=== PATIENT | female | born 1960 | race Caucasian/White ===

== ENCOUNTER 2017-01-15 16:35 | Emergency (ER) | payer OTHER ==
[2017-01-15] MEDS ORDERED: predniSONE 20 MG TAB As Ordered ONE (17:21)
[2017-01-15] MEDS ORDERED: ALBUTEROL SULFATE 2.5 MG/0.5 ML INH NEB SOLN As Ordered ONE (17:21)
[2017-01-15 17:55] LABS: BASO % 0.3 % (0.0-1.0); EOS # 0.1 K/mm3 (0.0-0.50); LARGE UNSTAINED CELL # 0.1 K/mm3 (0.0-0.4); LARGE UNSTAINED CELL % 1.8 % (0.0-4.0); LYMPH # 0.5 K/mm3 (1.5-4.5); LYMPH % 5.6 % (24.0-44.0); MEAN CORPUSCULAR HEMOGLOBIN 28.9 pg (27.0-33.0); MEAN CORPUSCULAR HGB CONC 34.1 g/dl (32.0-36.5); MEAN CORPUSCULAR VOLUME 84.6 fl (80.0-96.0); MONO # 0.5 K/mm3 (0.0-0.8); MONO % 7.5 % (0.0-5.0); NEUTROPHILS # 5.5 K/mm3 (1.8-7.7); NEUTROPHILS % 83.8 % (36.0-66.0); PLATELET COUNT, AUTOMATED 142 k/mm3 (150-450); RED CELL DISTRIBUTION WIDTH 13.4 % (11.5-14.5); WHITE BLOOD COUNT 6.6 K/mm3 (4.0-10.0)
--- NOTE | 2017-01-15 17:55 | REP ---
Clinical: Acute cough . Comparison: None . Technique: PA and lateral. Findings: The mediastinum and cardiac silhouette are normal. The lung carpio are clear and without acute consolidation, effusion, or pneumothorax. The skeletal structures are intact and normal. Impression: 1. No acute cardiopulmonary process. Signed by Jorge Slaughter MD 01/15/2017 05:47 P
[2017-01-15 18:31] LABS: ANION GAP 9 MEQ/L (8-16); BLOOD UREA NITROGEN 10 MG/DL (7-18); CALCIUM LEVEL 8.8 MG/DL (8.5-10.1); CARBON DIOXIDE LEVEL 24 MEQ/L (21-32); CHLORIDE LEVEL 105 MEQ/L (98-107); CREATININE FOR GFR 0.67 MG/DL (0.55-1.02); GLOMERULAR FILTRATION RATE > 60.0 (>51); GLUCOSE, FASTING 99 MG/DL (70-105); POTASSIUM SERUM 4.2 MEQ/L (3.5-5.1); SODIUM LEVEL 138 MEQ/L (136-145)
--- NOTE | 2017-01-15 18:55 | EDDOCDS ---
Physician Documentation [facility] Name: Saba Lynn Age: 56 yrs Sex: Female : 1960 Arrival Date: 01/15/2017 Time: 16:35 Bed I3 / M3 Private MD: Castillo Duque W. Disposition: 01/15/17 18:46 Discharged to Home/Self Care. Impression: Acute bronchitis, Asthma. - Condition is Stable. - Discharge Instructions: Acute Bronchitis, Asthma, Adult. - Prescriptions for Doxycycline Hyclate 100 mg Oral Tablet - take 1 tablet by ORAL route every 12 hours; 20 tablet. Prednisone 20 mg Oral Tablet - take 2 tablet by ORAL route once daily for 5 days; 10 tablet. - Medication Reconciliation, Local Pharmacy Hours form. - Follow up: Castillo Duque; When: 2 - 3 days; Reason: Recheck today's complaints, Continuance of care. - Problem is new. - Symptoms have improved. - Notes: USE MEDICATION INSTRUCTED, CONTINUE WITH YOUR NEBULIZERS AT HOME, FOLLOW UP WITH YOUR DOCTOR NEXT WEEK, RETURN TO THE ER IF THE SYMPTOMS WORSEN OR BECOME CONCERNING Historical: - Allergies: PENICILLINS; - Home Meds: 1. Tecfidera 240 mg oral cpDR 2 times per day 2. atorvastatin 10 mg oral tab once daily 3. albuterol sulfate 90 mcg/actuation Inhl aepb 4. ipratropium-albuterol 0.5 mg-3 mg(2.5 mg base)/3 mL Inhl nebu prn - PMHx: Multiple Sclerosis; Hypercholesterolemia; Asthma; - PSHx: D & C; Sinus Surgery; - Social history: Smoking status: Patient states was never smoker of tobacco. No barriers to communication noted, The patient speaks fluent Ugandan, Speaks appropriately for age. - Family history: Not pertinent. - : The pt / caregiver states he / she is not on anticoagulants. Home medication list is obtained from the patient. - Exposure Risk Screening:: None identified. 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 3 in. (160.02 cm); Pain 0/10; 18:54 BP 113 / 61; Pulse 96; Resp 18; Temp 100.4(O); Pulse Ox 96% on R/A; Pain 0/10; kc3 16:37 Body Mass Index 26.93 (68.95 kg, 160.02 cm) dem1 18:54 Provider aware of temp at discharge. kc3 MDM: 17:15 IV Saline Lock ordered. ck7 17:15 predniSONE 40 mg PO once; administer with food or milk ordered. ck7 17:15 Albuterol 2.5 mg Nebulizer once ordered. ck7 17:15 Call Respiratory ordered. ck7 17:15 Obtain sample by nasopharyngeal swab ordered. ck7 17:16 CBC with Diff Ordered. EDMS 17:16 MED Profile Ordered. EDMS 17:16 Call Respiratory complete. srm 17:16 -Influenza A&B Rapid Antigen - Nose Ordered. EDMS 17:16 Chest, 2 View (pa\E\lat) Ordered. EDMS 17:52 Financial registration complete. kf3 18:04 CBC with Diff Reviewed. ck7 18:04 Chest, 2 View (pa\E\lat) Reviewed. ck7 18:07 -Influenza A&B Rapid Antigen - Nose Reviewed. ck7 18:26 [facility] Payment Agreement was scanned into [facility] and attached to record. kf3 18:42 MED Profile Reviewed. ck7 Administered Medications: 17:24 Drug: Albuterol 2.5 mg [albuterol sulfate 2.5 mg/0.5 mL solution for nebulization (0.5 js mL)] Route: Nebulizer; 17:36 Drug: predniSONE 40 mg [prednisone 20 mg tablet (2 tabs)] Route: PO; kc3 Signatures: Dispatcher [employer] EDMS Naomy Zavaleta RN RN srm Fiddler, Benedict, Reg Reg kf3 John Bhatt RPA-C RPA-Cck7 Jazmín Munoz RN RN kc3 Ken Ascencio The chart was reviewed and I authenticate all verbal orders and agree with the evaluation and treatment provided.Attachments: 18:26 [facility] Payment Agreement kf3 MTDD
--- NOTE | 2017-01-15 18:56 | EDDOCDS ---
Nurse's Notes [facility] Name: Saba Lynn Age: 56 yrs Sex: Female : 1960 Arrival Date: 01/15/2017 Time: 16:35 Bed I3 / M3 Private MD: Castillo Duque W. Diagnosis: Acute bronchitis;Asthma Presentation: 01/15 16:38 Presenting complaint: Patient states: i have a chronic cough. dx with URI 2 weeks ago srm and placed on z pack. saw PMD and not given anything. Adult Sepsis Screening: The patient does not have new or worsening altered mentation. Patient's respiratory rate is less than 22. Systolic blood pressure is greater than 100. Patient has a qSOFA score of 0- Negative Sepsis Screen. Suicide/Homicide risk assessment- the patient denies having any suicidal and/or homicidal ideations and does not present with any other emotional, behavioral or mental health complaints. Status: Patient is not a director of cardiopulmonary services or dependent. Transition of care: patient was not received from another setting of care. 16:38 Acuity: JIE Level 4 srm 16:38 Method Of Arrival: Walkin/Carried/Asstd srm Triage Assessment: 16:40 General: Appears in no apparent distress, Behavior is appropriate for age, cooperative. srm Pain: Pain currently is 8 out of 10 on a pain scale. HIV screening NA for this visit Offered previously. 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 Tecfidera 240 mg oral cpDR 2 times per day 2. atorvastatin 10 mg oral tab once daily 3. albuterol sulfate 90 mcg/actuation Inhl aepb 4. ipratropium-albuterol 0.5 mg-3 mg(2.5 mg base)/3 mL Inhl nebu prn - PMHx: Multiple Sclerosis; Hypercholesterolemia; Asthma; - PSHx: D & C; Sinus Surgery; - Social history: Smoking status: Patient states was never smoker of tobacco. No barriers to communication noted, The patient speaks fluent Macedonian, Speaks appropriately for age. - Family history: Not pertinent. - : The pt / caregiver states he / she is not on anticoagulants. Home medication list is obtained from the patient. - Exposure Risk Screening:: None identified. Screenin:37 Screening information is obtained from the patient. Fall risk: No risks identified. kc3 Assistance ADL's: requires no assistance with activities of daily living. Abuse/DV Screen: The patient / caregiver reports he/she is: not in a situation that causes fear, pain or injury. Nutritional screening: No deficits noted. home support is adequate. 18:06 Advance Directives: Currently, there is no health care proxy. kc3 Assessment: 17:37 General: Appears in no apparent distress, comfortable, Behavior is appropriate for age, kc3 cooperative. Neurological: No deficits noted. Respiratory: Respiratory effort is even, unlabored, Reports cough that is non-productive. Derm: Skin is pink, warm & dry. 18:53 General: Appears in no apparent distress, comfortable, Behavior is appropriate for age, kc3 cooperative. Neurological: No deficits noted. Respiratory: Respiratory effort is even, unlabored. Derm: Skin is pink, warm & dry. Vital Signs: 16:37 BP 126 / 63; Pulse 90; Resp 18; Temp 98.3(T); Pulse Ox 97% on R/A; Weight 68.95 kg; dem1 Height 5 ft. 3 in. (160.02 cm); Pain 0/10; 18:54 BP 113 / 61; Pulse 96; Resp 18; Temp 100.4(O); Pulse Ox 96% on R/A; Pain 0/10; kc3 16:37 Body Mass Index 26.93 (68.95 kg, 160.02 cm) dem1 18:54 Provider aware of temp at discharge. kc3 Vitals: 16:37 Log In Time: January 15, 2017 at 16:34. [facility] ED Course: 16:35 Patient visited by Jesenia Baeza. dem1 16:35 Patient moved to Waiting dem1 16:37 Castillo Duque is Private Physician. dem1 16:38 Patient moved to Pre RCE dem1 16:38 Triage Initiated srm 16:40 Patient moved to Triage 1 srm 17:04 [facility] ck7 17:04 Vin Fuentes MD is Attending Physician. ck7 17:04 Patient visited by John Bhatt RPA-C. ck7 17:16 Patient moved to I3 / M3 srm 17:35 Patient visited by John Bhatt RPA-C. ck7 17:36 MED Profile Sent. kc3 17:36 CBC with Diff Sent. kc3 17:37 The patient / caregiver is instructed regarding the plan of care and ED course. kc3 17:37 -Influenza A&B Rapid Antigen - Nose Sent. kc3 18:00 Chest, 2 View (pa\E\lat) Returned. EDMS 18:06 Patient visited by Jazmín Munoz RN. kc3 18:06 Inserted saline lock: 20 gauge in left antecubital area and blood collected. The kc3 patient tolerated the procedure well. 18:26 [facility] Payment Agreement was scanned into [employer] and attached to record. kf3 18:45 Castillo Duque is Referral Physician. ck7 18:47 Patient visited by Jazmín Munoz RN. kc3 18:55 Discontinued IV lock intact, bleeding controlled, pressure dressing applied, No kc3 redness/swelling at site. No procedures done that require assistance. Administered Medications: 17:24 Drug: Albuterol 2.5 mg [albuterol sulfate 2.5 mg/0.5 mL solution for nebulization (0.5 js mL)] Route: Nebulizer; 17:36 Drug: predniSONE 40 mg [prednisone 20 mg tablet (2 tabs)] Route: PO; [facility] RT: 17:24 Initial Med Neb Given as ordered Patient was instructed and evaluated on procedure js Patient tolerated procedure well without adverse effect. Respiratory: Breath sounds are diminished bilaterally. Order Results: Lab Order: CBC with Diff; SPEC'M 01/15/17 17:27 Test: WHITE BLOOD COUNT; Value: 6.6; Range: 4.0-10.0; Units: K/mm3; Status: F Test: RED BLOOD COUNT; Value: 4.59; Range: 4.00-5.40; Units: M/mm3; Status: F Test: HEMOGLOBIN; Value: 13.3; Range: 12.0-16.0; Units: g/dl; Status: F Test: HEMATOCRIT; Value: 38.8; Range: 36.0-47.0; Units: %; Status: F Test: MEAN CORPUSCULAR VOLUME; Value: 84.6; Range: 80.0-96.0; Units: fl; Status: F Test: MEAN CORPUSCULAR HEMOGLOBIN; Value: 28.9; Range: 27.0-33.0; Units: pg; Status: F Test: MEAN CORPUSCULAR HGB CONC; Value: 34.1; Range: 32.0-36.5; Units: g/dl; Status: F Test: RED CELL DISTRIBUTION WIDTH; Value: 13.4; Range: 11.5-14.5; Units: %; Status: F Test: PLATELET COUNT, AUTOMATED; Value: 142; Range: 150-450; Abnormal: Below low normal; Units: k/mm3; Status: F Test: NEUTROPHILS %; Value: 83.8; Range: 36.0-66.0; Abnormal: Above high normal; Units: %; Status: F Test: LYMPH %; Value: 5.6; Range: 24.0-44.0; Abnormal: Below low normal; Units: %; Status: F Test: MONO %; Value: 7.5; Range: 0.0-5.0; Abnormal: Above high normal; Units: %; Status: F Test: EOS %; Value: 1.0; Range: 0.0-3.0; Units: %; Status: F Test: BASO %; Value: 0.3; Range: 0.0-1.0; Units: %; Status: F Test: LARGE UNSTAINED CELL %; Value: 1.8; Range: 0.0-4.0; Units: %; Status: F Test: NEUTROPHILS #; Value: 5.5; Range: 1.8-7.7; Units: K/mm3; Status: F Test: LYMPH #; Value: 0.5; Range: 1.5-4.5; Abnormal: Below low normal; Units: K/mm3; Status: F Test: MONO #; Value: 0.5; Range: 0.0-0.8; Units: K/mm3; Status: F Test: EOS #; Value: 0.1; Range: 0.0-0.50; Units: K/mm3; Status: F Test: BASO #; Value: 0.0; Range: 0.0-0.2; Units: K/mm3; Status: F Test: LARGE UNSTAINED CELL #; Value: 0.1; Range: 0.0-0.4; Units: K/mm3; Status: F Lab Order: MED Profile; SPEC'M 01/15/17 18:00 Test: GLUCOSE, FASTING; Value: 99; Range: 70-105; Units: MG/DL; Status: F Test: BLOOD UREA NITROGEN; Value: 10; Range: 7-18; Units: MG/DL; Status: F Test: CREATININE FOR GFR; Value: 0.67; Range: 0.55-1.02; Units: MG/DL; Status: F Test: GLOMERULAR FILTRATION RATE; Value: > 60.0; Range: >51; Status: F Test: SODIUM LEVEL; Value: 138; Range: 136-145; Units: MEQ/L; Status: F Test: POTASSIUM SERUM; Value: 4.2; Range: 3.5-5.1; Units: MEQ/L; Status: F Test: CHLORIDE LEVEL; Value: 105; Range: 98-107; Units: MEQ/L; Status: F Test: CARBON DIOXIDE LEVEL; Value: 24; Range: 21-32; Units: MEQ/L; Status: F Test: ANION GAP; Value: 9; Range: 8-16; Units: MEQ/L; Status: F Test: CALCIUM LEVEL; Value: 8.8; Range: 8.5-10.1; Units: MG/DL; Status: F Test Note: ; Units are mL/min/1.73 m2 Chronic Kidney Disease Staging per NKF: Stage I & II GFR >=60 Normal to Mildly Decreased Stage III GFR 30-59 Moderately Decreased Stage IV GFR 15-29 Severely Decreased Stage V GFR <15 Very Little GFR Left ESRD GFR <15 on CUFF MATCHER Lab Order: -Influenza A&B Rapid Antigen - Nose; SPEC'M 01/15/17 17:27 Test: INFLUENZA A RAPID SCR by ICA; Value: INFLUENZA A RESULTS NEGATIVE; Status: F Test: INFLUENZA A RAPID SCR by ICA; Value: Comments:; Status: F Test: INFLUENZA B RAPID SCR by ICA; Value: INFLUENZA B RESULTS NEGATIVE; Status: F Test Note: ; The Influenza test is a direct rapid immunoassay for the qualitative detection of Influenza viral antigen. Cell culture (Viral Culture) testing should be considered to confirm NEGATIVE results and to assist in detecting other viruses that can provide similar clinical symptoms. Please contact the lab within 24 hours ([phone]) if confirmatory testing is desired. Radiology Order: Chest, 2 View (pa\E\lat) Test: Chest, 2 View (pa\E\lat) REASON FOR EXAMINATION: Cough; Clinical: Acute cough .; ; Comparison: None .; ; Technique: PA and lateral.; ; Findings:; The mediastinum and cardiac silhouette are normal. The lung carpio are clear and; without acute consolidation, effusion, or pneumothorax. The skeletal structures; are intact and normal.; ; Impression:; 1. No acute cardiopulmonary process.; ; ; Signed by; Jorge Slaughter MD 01/15/2017 05:47 P; Outcome: 18:46 Discharge ordered by Provider. ck7 18:54 Discharge Assessment: Patient awake, alert and oriented x 3. No cognitive and/or kc3 functional deficits noted. Patient verbalized understanding of disposition instructions. patient administered narcotics - no. The following High Risk Discharge criteria are identified: None. Discharged to home ambulatory. Condition: stable. Discharge instructions given to patient, Instructed on discharge instructions, follow up and referral plans. medication usage, Demonstrated understanding of instructions, medications, Pt was receptive of discharge instructions/ teaching. Prescriptions given X 2. No special radiology studies were completed. Property :Personal belongings accompany Pt. 18:55 Patient left the ED. kc3 Signatures: Dispatcher [employer] EDMS Naomy Zavaleta, RN RN Ken Ruiz Kris, Reg Reg kf3 Jesenia Baeza Christopher, RPA-C RPA-Cck7 Jazmín Munoz,RN RN kc3 MTDD
--- NOTE | 2017-01-17 19:55 | EDDOCDS ---
Physician Documentation [facility] Name: Saba Lynn Age: 56 yrs Sex: Female : 1960 Arrival Date: 01/15/2017 Time: 16:35 Bed I3 / M3 Private MD: Castillo Duque W. Disposition: 01/15/17 18:46 Discharged to Home/Self Care. Impression: Acute bronchitis, Asthma. - Condition is Stable. - Discharge Instructions: Acute Bronchitis, Asthma, Adult. - Prescriptions for Doxycycline Hyclate 100 mg Oral Tablet - take 1 tablet by ORAL route every 12 hours; 20 tablet. Prednisone 20 mg Oral Tablet - take 2 tablet by ORAL route once daily for 5 days; 10 tablet. - Medication Reconciliation, Local Pharmacy Hours form. - Follow up: Castillo Duque; When: 2 - 3 days; Reason: Recheck today's complaints, Continuance of care. - Problem is new. - Symptoms have improved. - Notes: USE MEDICATION INSTRUCTED, CONTINUE WITH YOUR NEBULIZERS AT HOME, FOLLOW UP WITH YOUR DOCTOR NEXT WEEK, RETURN TO THE ER IF THE SYMPTOMS WORSEN OR BECOME CONCERNING Historical: - Allergies: PENICILLINS; - Home Meds: 1. Tecfidera 240 mg oral cpDR 2 times per day 2. atorvastatin 10 mg oral tab once daily 3. albuterol sulfate 90 mcg/actuation Inhl aepb 4. ipratropium-albuterol 0.5 mg-3 mg(2.5 mg base)/3 mL Inhl nebu prn - PMHx: Multiple Sclerosis; Hypercholesterolemia; Asthma; - PSHx: D & C; Sinus Surgery; - Social history: Smoking status: Patient states was never smoker of tobacco. No barriers to communication noted, The patient speaks fluent Thai, Speaks appropriately for age. - Family history: Not pertinent. - : The pt / caregiver states he / she is not on anticoagulants. Home medication list is obtained from the patient. - Exposure Risk Screening:: None identified. 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 3 in. (160.02 cm); Pain 0/10; 18:54 BP 113 / 61; Pulse 96; Resp 18; Temp 100.4(O); Pulse Ox 96% on R/A; Pain 0/10; kc3 16:37 Body Mass Index 26.93 (68.95 kg, 160.02 cm) dem1 18:54 Provider aware of temp at discharge. kc3 MDM: 17:15 IV Saline Lock ordered. ck7 17:15 predniSONE 40 mg PO once; administer with food or milk ordered. ck7 17:15 Albuterol 2.5 mg Nebulizer once ordered. ck7 17:15 Call Respiratory ordered. ck7 17:15 Obtain sample by nasopharyngeal swab ordered. ck7 17:16 CBC with Diff Ordered. EDMS 17:16 MED Profile Ordered. EDMS 17:16 Call Respiratory complete. srm 17:16 -Influenza A&B Rapid Antigen - Nose Ordered. EDMS 17:16 Chest, 2 View (pa\E\lat) Ordered. EDMS 17:52 Financial registration complete. kf3 18:04 CBC with Diff Reviewed. ck7 18:04 Chest, 2 View (pa\E\lat) Reviewed. ck7 18:07 -Influenza A&B Rapid Antigen - Nose Reviewed. ck7 18:26 [facility] Payment Agreement was scanned into [employer] and attached to record. kf3 18:42 MED Profile Reviewed. ck7 20:48 T-Sheet-- Draft Copy was scanned into [employer] and attached to record. klr Administered Medications: 17:24 Drug: Albuterol 2.5 mg [albuterol sulfate 2.5 mg/0.5 mL solution for nebulization (0.5 js mL)] Route: Nebulizer; 17:36 Drug: predniSONE 40 mg [prednisone 20 mg tablet (2 tabs)] Route: PO; kc3 Signatures: Dispatcher [employer] EDMS Naomy Zavaleta RN RN srm Fidkevynr, Benedict, Reg Reg kf3 John Bhatt RPA-C RPA-Cck7 Jazmín Munoz RN RN kc3 Jane Oakley James js The chart was reviewed and I authenticate all verbal orders and agree with the evaluation and treatment provided.Attachments: 18:26 [facility] Payment Agreement kf3 20:48 T-Sheet-- Draft Copy klr Chart Complete MTDD
--- NOTE | 2017-01-17 19:55 | EDDOCDS ---
Nurse's Notes [facility] Name: Saba Lynn Age: 56 yrs Sex: Female : 1960 Arrival Date: 01/15/2017 Time: 16:35 Bed I3 / M3 Private MD: Castillo Duque W. Diagnosis: Acute bronchitis;Asthma Presentation: 01/15 16:38 Presenting complaint: Patient states: i have a chronic cough. dx with URI 2 weeks ago srm and placed on z pack. saw PMD and not given anything. Adult Sepsis Screening: The patient does not have new or worsening altered mentation. Patient's respiratory rate is less than 22. Systolic blood pressure is greater than 100. Patient has a qSOFA score of 0- Negative Sepsis Screen. Suicide/Homicide risk assessment- the patient denies having any suicidal and/or homicidal ideations and does not present with any other emotional, behavioral or mental health complaints. Status: Patient is not a director of child welfare services or dependent. Transition of care: patient was not received from another setting of care. 16:38 Acuity: JIE Level 4 srm 16:38 Method Of Arrival: Walkin/Carried/Asstd srm Triage Assessment: 16:40 General: Appears in no apparent distress, Behavior is appropriate for age, cooperative. srm Pain: Pain currently is 8 out of 10 on a pain scale. HIV screening NA for this visit Offered previously. 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 Tecfidera 240 mg oral cpDR 2 times per day 2. atorvastatin 10 mg oral tab once daily 3. albuterol sulfate 90 mcg/actuation Inhl aepb 4. ipratropium-albuterol 0.5 mg-3 mg(2.5 mg base)/3 mL Inhl nebu prn - PMHx: Multiple Sclerosis; Hypercholesterolemia; Asthma; - PSHx: D & C; Sinus Surgery; - Social history: Smoking status: Patient states was never smoker of tobacco. No barriers to communication noted, The patient speaks fluent Bulgarian, Speaks appropriately for age. - Family history: Not pertinent. - : The pt / caregiver states he / she is not on anticoagulants. Home medication list is obtained from the patient. - Exposure Risk Screening:: None identified. Screenin:37 Screening information is obtained from the patient. Fall risk: No risks identified. kc3 Assistance ADL's: requires no assistance with activities of daily living. Abuse/DV Screen: The patient / caregiver reports he/she is: not in a situation that causes fear, pain or injury. Nutritional screening: No deficits noted. home support is adequate. 18:06 Advance Directives: Currently, there is no health care proxy. kc3 Assessment: 17:37 General: Appears in no apparent distress, comfortable, Behavior is appropriate for age, kc3 cooperative. Neurological: No deficits noted. Respiratory: Respiratory effort is even, unlabored, Reports cough that is non-productive. Derm: Skin is pink, warm & dry. 18:53 General: Appears in no apparent distress, comfortable, Behavior is appropriate for age, kc3 cooperative. Neurological: No deficits noted. Respiratory: Respiratory effort is even, unlabored. Derm: Skin is pink, warm & dry. Vital Signs: 16:37 BP 126 / 63; Pulse 90; Resp 18; Temp 98.3(T); Pulse Ox 97% on R/A; Weight 68.95 kg; dem1 Height 5 ft. 3 in. (160.02 cm); Pain 0/10; 18:54 BP 113 / 61; Pulse 96; Resp 18; Temp 100.4(O); Pulse Ox 96% on R/A; Pain 0/10; kc3 16:37 Body Mass Index 26.93 (68.95 kg, 160.02 cm) dem1 18:54 Provider aware of temp at discharge. kc3 Vitals: 16:37 Log In Time: January 15, 2017 at 16:34. [facility] ED Course: 16:35 Patient visited by Jesenia Bazea. dem1 16:35 Patient moved to Waiting dem1 16:37 Castillo Duque is Private Physician. dem1 16:38 Patient moved to Pre RCE dem1 16:38 Triage Initiated srm 16:40 Patient moved to Triage 1 srm 17:04 [facility] ck7 17:04 Vin Fuentes MD is Attending Physician. ck7 17:04 Patient visited by John Bhatt RPA-C. ck7 17:16 Patient moved to I3 / M3 srm 17:35 Patient visited by John Bhatt RPA-C. ck7 17:36 MED Profile Sent. kc3 17:36 CBC with Diff Sent. kc3 17:37 The patient / caregiver is instructed regarding the plan of care and ED course. kc3 17:37 -Influenza A&B Rapid Antigen - Nose Sent. kc3 18:00 Chest, 2 View (pa\E\lat) Returned. EDMS 18:06 Patient visited by Jazmín Munoz RN. kc3 18:06 Inserted saline lock: 20 gauge in left antecubital area and blood collected. The kc3 patient tolerated the procedure well. 18:26 [facility] Payment Agreement was scanned into [employer] and attached to record. kf3 18:45 Castillo Duque is Referral Physician. ck7 18:47 Patient visited by Jazmín Munoz RN. kc3 18:55 Discontinued IV lock intact, bleeding controlled, pressure dressing applied, No kc3 redness/swelling at site. No procedures done that require assistance. 20:48 T-Sheet-- Draft Copy was scanned into [employer] and attached to record. klr Administered Medications: 17:24 Drug: Albuterol 2.5 mg [albuterol sulfate 2.5 mg/0.5 mL solution for nebulization (0.5 js mL)] Route: Nebulizer; 17:36 Drug: predniSONE 40 mg [prednisone 20 mg tablet (2 tabs)] Route: PO; kc3 RT: 17:24 Initial Med Neb Given as ordered Patient was instructed and evaluated on procedure js Patient tolerated procedure well without adverse effect. Respiratory: Breath sounds are diminished bilaterally. Order Results: Lab Order: CBC with Diff; SPEC'M 01/15/17 17:27 Test: WHITE BLOOD COUNT; Value: 6.6; Range: 4.0-10.0; Units: K/mm3; Status: F Test: RED BLOOD COUNT; Value: 4.59; Range: 4.00-5.40; Units: M/mm3; Status: F Test: HEMOGLOBIN; Value: 13.3; Range: 12.0-16.0; Units: g/dl; Status: F Test: HEMATOCRIT; Value: 38.8; Range: 36.0-47.0; Units: %; Status: F Test: MEAN CORPUSCULAR VOLUME; Value: 84.6; Range: 80.0-96.0; Units: fl; Status: F Test: MEAN CORPUSCULAR HEMOGLOBIN; Value: 28.9; Range: 27.0-33.0; Units: pg; Status: F Test: MEAN CORPUSCULAR HGB CONC; Value: 34.1; Range: 32.0-36.5; Units: g/dl; Status: F Test: RED CELL DISTRIBUTION WIDTH; Value: 13.4; Range: 11.5-14.5; Units: %; Status: F Test: PLATELET COUNT, AUTOMATED; Value: 142; Range: 150-450; Abnormal: Below low normal; Units: k/mm3; Status: F Test: NEUTROPHILS %; Value: 83.8; Range: 36.0-66.0; Abnormal: Above high normal; Units: %; Status: F Test: LYMPH %; Value: 5.6; Range: 24.0-44.0; Abnormal: Below low normal; Units: %; Status: F Test: MONO %; Value: 7.5; Range: 0.0-5.0; Abnormal: Above high normal; Units: %; Status: F Test: EOS %; Value: 1.0; Range: 0.0-3.0; Units: %; Status: F Test: BASO %; Value: 0.3; Range: 0.0-1.0; Units: %; Status: F Test: LARGE UNSTAINED CELL %; Value: 1.8; Range: 0.0-4.0; Units: %; Status: F Test: NEUTROPHILS #; Value: 5.5; Range: 1.8-7.7; Units: K/mm3; Status: F Test: LYMPH #; Value: 0.5; Range: 1.5-4.5; Abnormal: Below low normal; Units: K/mm3; Status: F Test: MONO #; Value: 0.5; Range: 0.0-0.8; Units: K/mm3; Status: F Test: EOS #; Value: 0.1; Range: 0.0-0.50; Units: K/mm3; Status: F Test: BASO #; Value: 0.0; Range: 0.0-0.2; Units: K/mm3; Status: F Test: LARGE UNSTAINED CELL #; Value: 0.1; Range: 0.0-0.4; Units: K/mm3; Status: F Lab Order: MED Profile; SPEC'M 01/15/17 18:00 Test: GLUCOSE, FASTING; Value: 99; Range: 70-105; Units: MG/DL; Status: F Test: BLOOD UREA NITROGEN; Value: 10; Range: 7-18; Units: MG/DL; Status: F Test: CREATININE FOR GFR; Value: 0.67; Range: 0.55-1.02; Units: MG/DL; Status: F Test: GLOMERULAR FILTRATION RATE; Value: > 60.0; Range: >51; Status: F Test: SODIUM LEVEL; Value: 138; Range: 136-145; Units: MEQ/L; Status: F Test: POTASSIUM SERUM; Value: 4.2; Range: 3.5-5.1; Units: MEQ/L; Status: F Test: CHLORIDE LEVEL; Value: 105; Range: 98-107; Units: MEQ/L; Status: F Test: CARBON DIOXIDE LEVEL; Value: 24; Range: 21-32; Units: MEQ/L; Status: F Test: ANION GAP; Value: 9; Range: 8-16; Units: MEQ/L; Status: F Test: CALCIUM LEVEL; Value: 8.8; Range: 8.5-10.1; Units: MG/DL; Status: F Test Note: ; Units are mL/min/1.73 m2 Chronic Kidney Disease Staging per NKF: Stage I & II GFR >=60 Normal to Mildly Decreased Stage III GFR 30-59 Moderately Decreased Stage IV GFR 15-29 Severely Decreased Stage V GFR <15 Very Little GFR Left ESRD GFR <15 on [employer]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 Cell culture (Viral Culture) testing should be considered to confirm NEGATIVE results and to assist in detecting other viruses that can provide similar clinical symptoms. Please contact the lab within 24 hours ([phone]) if confirmatory testing is desired. Radiology Order: Chest, 2 View (pa\E\lat) Test: Chest, 2 View (pa\E\lat) REASON FOR EXAMINATION: Cough; Clinical: Acute cough .; ; Comparison: None .; ; Technique: PA and lateral.; ; Findings:; The mediastinum and cardiac silhouette are normal. The lung carpio are clear and; without acute consolidation, effusion, or pneumothorax. The skeletal structures; are intact and normal.; ; Impression:; 1. No acute cardiopulmonary process.; ; ; Signed by; Jorge Slaughter MD 01/15/2017 05:47 P; Outcome: 18:46 Discharge ordered by Provider. ck7 18:54 Discharge Assessment: Patient awake, alert and oriented x 3. No cognitive and/or kc3 functional deficits noted. Patient verbalized understanding of disposition instructions. patient administered narcotics - no. The following High Risk Discharge criteria are identified: None. Discharged to home ambulatory. Condition: stable. Discharge instructions given to patient, Instructed on discharge instructions, follow up and referral plans. medication usage, Demonstrated understanding of instructions, medications, Pt was receptive of discharge instructions/ teaching. Prescriptions given X 2. No special radiology studies were completed. Property :Personal belongings accompany Pt. 18:55 Patient left the ED. kc3 Signatures: Dispatcher [employer] EDMS Naomy Zavaleta, RN RN Ken Ruiz Kris, Reg Reg kf3 Jesenia Baeza dem1 John Bhatt, LYLA-C RPA-Cck7 Jazmín Munoz RN RN kc3 Jane Oakley Chart Complete MTDD
--- NOTE | 2017-01-17 19:55 | EDDOCDS ---
Physician Documentation [facility] Name: Saba Lynn Age: 56 yrs Sex: Female : 1960 Arrival Date: 01/15/2017 Time: 16:35 Bed I3 / M3 Private MD: Castillo Duque W. Disposition: 01/15/17 18:46 Discharged to Home/Self Care. Impression: Acute bronchitis, Asthma. - Condition is Stable. - Discharge Instructions: Acute Bronchitis, Asthma, Adult. - Prescriptions for Doxycycline Hyclate 100 mg Oral Tablet - take 1 tablet by ORAL route every 12 hours; 20 tablet. Prednisone 20 mg Oral Tablet - take 2 tablet by ORAL route once daily for 5 days; 10 tablet. - Medication Reconciliation, Local Pharmacy Hours form. - Follow up: Castillo Duque; When: 2 - 3 days; Reason: Recheck today's complaints, Continuance of care. - Problem is new. - Symptoms have improved. - Notes: USE MEDICATION INSTRUCTED, CONTINUE WITH YOUR NEBULIZERS AT HOME, FOLLOW UP WITH YOUR DOCTOR NEXT WEEK, RETURN TO THE ER IF THE SYMPTOMS WORSEN OR BECOME CONCERNING Historical: - Allergies: PENICILLINS; - Home Meds: 1. Tecfidera 240 mg oral cpDR 2 times per day 2. atorvastatin 10 mg oral tab once daily 3. albuterol sulfate 90 mcg/actuation Inhl aepb 4. ipratropium-albuterol 0.5 mg-3 mg(2.5 mg base)/3 mL Inhl nebu prn - PMHx: Multiple Sclerosis; Hypercholesterolemia; Asthma; - PSHx: D & C; Sinus Surgery; - Social history: Smoking status: Patient states was never smoker of tobacco. No barriers to communication noted, The patient speaks fluent Malaysian, Speaks appropriately for age. - Family history: Not pertinent. - : The pt / caregiver states he / she is not on anticoagulants. Home medication list is obtained from the patient. - Exposure Risk Screening:: None identified. 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 3 in. (160.02 cm); Pain 0/10; 18:54 BP 113 / 61; Pulse 96; Resp 18; Temp 100.4(O); Pulse Ox 96% on R/A; Pain 0/10; kc3 16:37 Body Mass Index 26.93 (68.95 kg, 160.02 cm) dem1 18:54 Provider aware of temp at discharge. kc3 MDM: 17:15 IV Saline Lock ordered. ck7 17:15 predniSONE 40 mg PO once; administer with food or milk ordered. ck7 17:15 Albuterol 2.5 mg Nebulizer once ordered. ck7 17:15 Call Respiratory ordered. ck7 17:15 Obtain sample by nasopharyngeal swab ordered. ck7 17:16 CBC with Diff Ordered. EDMS 17:16 MED Profile Ordered. EDMS 17:16 Call Respiratory complete. srm 17:16 -Influenza A&B Rapid Antigen - Nose Ordered. EDMS 17:16 Chest, 2 View (pa\E\lat) Ordered. EDMS 17:52 Financial registration complete. kf3 18:04 CBC with Diff Reviewed. ck7 18:04 Chest, 2 View (pa\E\lat) Reviewed. ck7 18:07 -Influenza A&B Rapid Antigen - Nose Reviewed. ck7 18:26 [facility] Payment Agreement was scanned into [employer] and attached to record. kf3 18:42 MED Profile Reviewed. ck7 20:48 T-Sheet-- Draft Copy was scanned into [employer] and attached to record. klr Administered Medications: 17:24 Drug: Albuterol 2.5 mg [albuterol sulfate 2.5 mg/0.5 mL solution for nebulization (0.5 js mL)] Route: Nebulizer; 17:36 Drug: predniSONE 40 mg [prednisone 20 mg tablet (2 tabs)] Route: PO; kc3 Signatures: Dispatcher [employer] EDMS Naomy Zavaleta RN RN srm Fidkevynr, Benedict, Reg Reg kf3 John Bhatt RPA-C RPA-Cck7 Jazmín Munoz RN RN kc3 Jane Oakley James js The chart was reviewed and I authenticate all verbal orders and agree with the evaluation and treatment provided.Attachments: 18:26 [facility] [place] Payment Agreement kf3 20:48 T-Sheet-- Draft Copy klr Chart Complete MTDD
== END 2017-01-15 18:55 | disposition home or self-care (01) ==
LOC: M ED 16:35
DX: J20.9 Acute bronchitis, unspecified (principal); J45.909 Unspecified asthma, uncomplicated; E78.00 Pure hypercholesterolemia, unspecified; G35 Multiple sclerosis; Z79.899 Other long term (current) drug therapy; Z88.0 Allergy status to penicillin

== ENCOUNTER → 2017-02-25 | Outpatient (REF) | payer OTHER ==
[2017-02-25 13:39] LABS: CALCIUM OXALATE CRYSTALS LARGE
== END ==
LOC: M LAB REF 13:03
PROVIDERS: ATTEND Physician Assistant
DX: R30.0 Dysuria (principal)

== ENCOUNTER → 2017-12-09 | Outpatient (CLI) | payer OTHER | LOC: M PAIN 11:15 | DX: G89.29 Other chronic pain (principal); M46.1 Sacroiliitis, not elsewhere classified; M21.372 Foot drop, left foot; G35 Multiple sclerosis; G47.30 Sleep apnea, unspecified; J45.909 Unspecified asthma, uncomplicated; Z88.0 Allergy status to penicillin; Z79.899 Other long term (current) drug therapy | CPT/HCPCS: G0463 ==

== ENCOUNTER → 2017-12-23 | Outpatient (CLI) | payer OTHER ==
[2017-12-23 17:39] LABS: BASO % 0.3 % (0.0-1.0); EOS # 0.1 10^3/uL (0.0-0.50); EOS % 2.3 % (0.0-3.0); HEMATOCRIT 37.8 % (36.0-47.0); HEMOGLOBIN 12.3 g/dl (12.0-16.0); IMMATURE GRANULOCYTE % 0.3 % (0-0); LYMPH # 0.3 10^3/uL (1.5-4.5); LYMPH % 8.4 % (24.0-44.0); MEAN CORPUSCULAR HEMOGLOBIN 27.8 pg (27.0-33.0); MEAN CORPUSCULAR HGB CONC 32.5 g/dl (32.0-36.5); MEAN CORPUSCULAR VOLUME 85.5 fl (80.0-96.0); MONO # 0.4 10^3/uL (0.0-0.8); MONO % 11.2 % (0.0-5.0); NEUTROPHILS # 2.7 10^3/uL (1.8-7.7); NEUTROPHILS % 77.5 % (36.0-66.0); PLATELET COUNT, AUTOMATED 146 10^3/uL (150-450); RED BLOOD COUNT 4.42 10^6/uL (4.00-5.40); RED CELL DISTRIBUTION WIDTH 12.8 % (11.5-14.5); WHITE BLOOD COUNT 3.5 10^3/uL (4.0-10.0)
[2017-12-23 17:42] LABS: ANION GAP 7 MEQ/L (8-16); BLOOD UREA NITROGEN 12 MG/DL (7-18); CALCIUM LEVEL 8.6 MG/DL (8.5-10.1); CARBON DIOXIDE LEVEL 26 MEQ/L (21-32); CHLORIDE LEVEL 109 MEQ/L (98-107); GLOMERULAR FILTRATION RATE > 60.0 (>51); GLUCOSE, FASTING 106 MG/DL (70-100); POTASSIUM SERUM 4.2 MEQ/L (3.5-5.1); SODIUM LEVEL 142 MEQ/L (136-145)
[2017-12-23 20:44] LABS: POSITIVE DIFF POS FLAG
== END ==
LOC: M WUC 13:57
DX: Z01.812 Encounter for preprocedural laboratory examination (principal); M72.2 Plantar fascial fibromatosis; M77.30 Calcaneal spur, unspecified foot
CPT/HCPCS: 80048

== ENCOUNTER 2017-12-29 06:24 | Day surgery (SDC) | payer OTHER ==
[2017-12-29] MEDS: LR 1,000 ML IV (06:59)
[2017-12-29] MEDS ORDERED: CLINDAMYCIN 600 MG in APPROPRIATE DILUENT 1 EA IV (07:00)
[2017-12-29] MEDS ORDERED: fentaNYL 100 MCG/2 ML INJECTION (J3010) As Ordered (07:08)
[2017-12-29] MEDS ORDERED: MIDAZOLAM INJ 2 MG/2 ML VIAL (J2250) As Ordered (07:08)
[2017-12-29] MEDS: dexameTHASONE 4 MG/ML 1ML VIAL (J1100) As Ordered (07:11)
[2017-12-29] MEDS ORDERED: PROPOFOL 200 MG/20 ML VIAL As Ordered ×3 (07:11→07:45)
[2017-12-29] MEDS: LIDOCAINE 2% MDV 20 ML VIAL As Ordered (07:40)
[2017-12-29] MEDS: BUPIVACAINE HCL 0.5% 10 ML VIAL As Ordered (07:41)
[2017-12-29] MEDS ORDERED: PHENYLephrine HCL 500 MCG/5 ML (100MCG/ML) SYRINGE (J2370) As Ordered (07:48)
[2017-12-29] MEDS ORDERED: dexameTHASONE 4 MG/ML 1ML VIAL (J1100) As Ordered (07:57)
[2017-12-29] MEDS ORDERED: ONDANSETRON 4MG/2ML VIAL (J2405) As Ordered (07:57)
[2017-12-29] MEDS ORDERED: KETOROLAC 60 MG/2 ML VIAL (J1885) As Ordered (07:57)
[2017-12-29] MEDS ORDERED: ONDANSETRON 4MG/2ML VIAL (J2405) IV (09:30)
[2017-12-29] MEDS ORDERED: PERCOCET 5MG/325MG TAB PO (09:30)
[2017-12-29] MEDS ORDERED: LR 1,000 ML IV (09:30)
== END 2017-12-29 09:45 | disposition home or self-care (01) ==
LOC: M SDC 06:24
DX: M72.2 Plantar fascial fibromatosis (principal); I10 Essential (primary) hypertension; G35 Multiple sclerosis; M12.9 Arthropathy, unspecified; M54.2 Cervicalgia; J45.909 Unspecified asthma, uncomplicated; R06.83 Snoring; G47.33 Obstructive sleep apnea (adult) (pediatric); E78.5 Hyperlipidemia, unspecified; Z88.0 Allergy status to penicillin; Z79.899 Other long term (current) drug therapy; Z78.0 Asymptomatic menopausal state; Z98.51 Tubal ligation status
CPT/HCPCS: 29893

== ENCOUNTER → 2018-01-26 | Outpatient (REF) | payer OTHER ==
[2018-01-26 13:32] LABS: BASO % 0.3 % (0.0-1.0); EOS # 0.1 10^3/uL (0.0-0.50); EOS % 3.4 % (0.0-3.0); HEMATOCRIT 38.2 % (36.0-47.0); HEMOGLOBIN 12.5 g/dl (12.0-16.0); IMMATURE GRANULOCYTE % 0.3 % (0-3.0); LYMPH # 0.3 10^3/uL (1.5-4.5); MEAN CORPUSCULAR HEMOGLOBIN 27.5 pg (27.0-33.0); MEAN CORPUSCULAR HGB CONC 32.7 g/dl (32.0-36.5); MEAN CORPUSCULAR VOLUME 84.1 fl (80.0-96.0); MONO # 0.4 10^3/uL (0.0-0.8); MONO % 12.1 % (0.0-5.0); NEUTROPHILS # 2.1 10^3/uL (1.8-7.7); NEUTROPHILS % 73.9 % (36.0-66.0); PLATELET COUNT, AUTOMATED 135 10^3/uL (150-450); RED BLOOD COUNT 4.54 10^6/uL (4.00-5.40); RED CELL DISTRIBUTION WIDTH 13.2 % (11.5-14.5); WHITE BLOOD COUNT 2.9 10^3/uL (4.0-10.0)
[2018-01-26 13:42] LABS: POSITIVE DIFF POS FLAG
[2018-01-26 14:15] LABS: ALBUMIN/GLOBULIN RATIO 1.25 (1.00-1.93); ALKALINE PHOSPHATASE 101 U/L (45-117); ALT/SGPT 30 U/L (12-78); ANION GAP 8 MEQ/L (8-16); AST/SGOT 18 U/L (7-37); BILIRUBIN,TOTAL 0.4 MG/DL (0.2-1.0); BLOOD UREA NITROGEN 14 MG/DL (7-18); CALCIUM LEVEL 8.9 MG/DL (8.5-10.1); CARBON DIOXIDE LEVEL 28 MEQ/L (21-32); CHLORIDE LEVEL 107 MEQ/L (98-107); CREATININE FOR GFR 0.72 MG/DL (0.55-1.30); GLOMERULAR FILTRATION RATE > 60.0 (>51); GLUCOSE, FASTING 96 MG/DL (70-100); POTASSIUM SERUM 3.8 MEQ/L (3.5-5.1); SODIUM LEVEL 143 MEQ/L (136-145); TOTAL PROTEIN 7.2 GM/DL (6.4-8.2)
[2018-01-26 14:18] LABS: VITAMIN B12 LEVEL 242 PG/ML
[2018-01-26 14:19] LABS: FOLATE 7.8 NG/ML
== END ==
LOC: M LABNEURO 11:09
DX: G35 Multiple sclerosis (principal)

== ENCOUNTER → 2018-05-02 | Outpatient (CLI) | payer OTHER | LOC: M RAD 11:19 | DX: M25.511 Pain in right shoulder (principal) | CPT/HCPCS: 73030 ==

== ENCOUNTER → 2018-10-19 | Outpatient (REF) | payer OTHER ==
[2018-10-19 13:31] LABS: BASO % 0.3 % (0.0-1.0); EOS # 0.1 10^3/uL (0.0-0.50); HEMATOCRIT 38.6 % (36.0-47.0); HEMOGLOBIN 12.5 g/dl (12.0-15.5); IMMATURE GRANULOCYTE % 0.3 % (0-3.0); LYMPH % 6.6 % (24.0-44.0); MEAN CORPUSCULAR HEMOGLOBIN 27.7 pg (27.0-33.0); MEAN CORPUSCULAR HGB CONC 32.4 g/dl (32.0-36.5); MEAN CORPUSCULAR VOLUME 85.6 fl (80.0-96.0); MONO # 0.3 10^3/uL (0.0-0.8); MONO % 8.3 % (0.0-5.0); NEUTROPHILS # 2.9 10^3/uL (1.8-7.7); NEUTROPHILS % 82.5 % (36.0-66.0); PLATELET COUNT, AUTOMATED 141 10^3/uL (150-450); RED BLOOD COUNT 4.51 10^6/uL (4.00-5.40); RED CELL DISTRIBUTION WIDTH 13.5 % (11.5-14.5); WHITE BLOOD COUNT 3.5 10^3/uL (4.0-10.0)
[2018-10-19 13:45] LABS: APPEARANCE, URINE CLEAR (CLEAR); BACTERIA, URINE AUTO 1+ (NEGATIVE); BILIRUBIN, URINE AUTO NEGATIVE (NEGATIVE); BLOOD, URINE BLOOD NEGATIVE (NEGATIVE); COLOR, URINE YELLOW (YELLOW); GLUCOSE, URINE (UA) AUTO NEGATIVE (NEGATIVE); KETONE, URINE AUTO NEGATIVE (NEGATIVE); LEUKOCYTE ESTERASE, URINE AUTO 1+ (NEGATIVE); MUCUS, URINE SMALL (NEGATIVE); NITRITE, URINE AUTO NEGATIVE (NEGATIVE); PROTEIN, URINE AUTO NEGATIVE (NEGATIVE); RBC, URINE AUTO 2 /HPF (0-3); SPECIFIC GRAVITY URINE AUTO 1.014 (1.002-1.035); SQUAMOUS EPITHELIAL CELL UR AU 1 /HPF (0-6); WBC, URINE AUTO 3 /HPF (0-3)
[2018-10-19 13:57] LABS: LYMPH # 0.2 10^3/uL (1.5-4.5); POSITIVE DIFF POS FLAG
[2018-10-19 14:06] LABS: ALBUMIN 4.1 GM/DL (3.2-5.2); ALBUMIN/GLOBULIN RATIO 1.46 (1.00-1.93); ALKALINE PHOSPHATASE 76 U/L (45-117); ALT/SGPT 30 U/L (12-78); ANION GAP 5 MEQ/L (8-16); AST/SGOT 15 U/L (7-37); BILIRUBIN,TOTAL 0.5 MG/DL (0.2-1.0); BLOOD UREA NITROGEN 11 MG/DL (7-18); CALCIUM LEVEL 8.8 MG/DL (8.5-10.1); CARBON DIOXIDE LEVEL 28 MEQ/L (21-32); CHLORIDE LEVEL 106 MEQ/L (98-107); CREATININE FOR GFR 0.67 MG/DL (0.55-1.30); GLOMERULAR FILTRATION RATE > 60.0 (>51); GLUCOSE, FASTING 101 MG/DL (70-100); POTASSIUM SERUM 4.3 MEQ/L (3.5-5.1); SODIUM LEVEL 139 MEQ/L (136-145); TOTAL PROTEIN 6.9 GM/DL (6.4-8.2)
[2018-10-19 14:14] LABS: FOLATE 9.3 NG/ML; VITAMIN B12 LEVEL 251 PG/ML
== END ==
LOC: M LABNEURO 11:53
DX: G35 Multiple sclerosis (principal); N39.0 Urinary tract infection, site not specified
CPT/HCPCS: 82746

== ENCOUNTER → 2019-01-02 | Outpatient (REF) | payer OTHER, MEDICAID ==
[~2019-01-02] MED LIST: HYDR-3713 PO; LEVA12INH INH; SING10TA32 PO; TECF240C PO; VENTAER INH
== END ==
LOC: M SFHCLERA 16:05
PROVIDERS: ATTEND Nurse Practitioner Family
DX: J00 Acute nasopharyngitis [common cold] (principal)

== ENCOUNTER → 2019-01-02 | Outpatient (REF) | payer OTHER, MEDICAID | LOC: M LAB REF 17:20 | PROVIDERS: ATTEND Internal Medicine Endocrinology, Diabetes & Metabolism | DX: E04.2 Nontoxic multinodular goiter (principal) ==

== ENCOUNTER → 2019-02-28 | Outpatient (REF) | payer OTHER, MEDICAID ==
[2019-02-28 13:50] LABS: BASO % 0.2 % (0.0-1.0); EOS # 0.1 10^3/uL (0.0-0.50); EOS % 1.8 % (0.0-3.0); HEMATOCRIT 42.1 % (36.0-47.0); HEMOGLOBIN 13.6 g/dl (12.0-15.5); LYMPH # 0.3 10^3/uL (1.5-4.5); LYMPH % 6.9 % (24.0-44.0); MEAN CORPUSCULAR HEMOGLOBIN 27.5 pg (27.0-33.0); MEAN CORPUSCULAR HGB CONC 32.3 g/dl (32.0-36.5); MEAN CORPUSCULAR VOLUME 85.2 fl (80.0-96.0); MONO # 0.5 10^3/uL (0.0-0.8); MONO % 11.2 % (0.0-5.0); NEUTROPHILS # 3.5 10^3/uL (1.8-7.7); NEUTROPHILS % 79.7 % (36.0-66.0); PLATELET COUNT, AUTOMATED 145 10^3/uL (150-450); RED BLOOD COUNT 4.94 10^6/uL (4.00-5.40); WHITE BLOOD COUNT 4.4 10^3/uL (4.0-10.0)
[2019-02-28 14:12] LABS: ALBUMIN 4.2 GM/DL (3.2-5.2); ALT/SGPT 71 U/L (12-78); BILIRUBIN,TOTAL 0.5 MG/DL (0.2-1.0); BLOOD UREA NITROGEN 13 MG/DL (7-18); CALCIUM LEVEL 9.2 MG/DL (8.5-10.1); CARBON DIOXIDE LEVEL 28 MEQ/L (21-32); CHLORIDE LEVEL 105 MEQ/L (98-107); CREATININE FOR GFR 0.59 MG/DL (0.55-1.30); GLOMERULAR FILTRATION RATE > 60.0 (>51); GLUCOSE, FASTING 108 MG/DL (70-100); SODIUM LEVEL 139 MEQ/L (136-145); TOTAL PROTEIN 7.1 GM/DL (6.4-8.2)
[2019-02-28 14:19] LABS: VITAMIN B12 LEVEL 597 PG/ML (247-911)
== END ==
LOC: M LABNEURO 12:53
PROVIDERS: ATTEND Psychiatry & Neurology Neurology
DX: G35 Multiple sclerosis (principal)

== ENCOUNTER → 2019-04-04 | Outpatient (CLI) | payer OTHER, MEDICAID ==
--- NOTE | 2019-04-05 02:27 | REP ---
Clinical: Abnormal pulmonary function studies with history of asthma . Comparison: 01/15/2017 . Technique: PA and lateral. Findings: The mediastinum and cardiac silhouette are normal. The lung carpio are clear and without acute consolidation, effusion, or pneumothorax. The skeletal structures are intact and normal. Impression: 1. No acute cardiopulmonary process. Electronically Signed by Jorge Slaughter MD 04/05/2019 02:18 A
== END ==
LOC: M SMT 10:14
PROVIDERS: ATTEND Nurse Practitioner Adult Health
DX: R94.2 Abnormal results of pulmonary function studies (principal); J45.40 Moderate persistent asthma, uncomplicated

== ENCOUNTER 2019-06-27 07:07 | Day surgery (SDC) | payer OTHER ==
[~2019-06-27] VITALS: Ht 160 cm; Wt 67.6 kg
[~2019-06-27 07:07] MED LIST changes: +ALB2.5NEB INH; +ALBU0.63 INH; +ALL10TAB29 PO; +BREO1INH3 INH; +CYAN1000VL IM; +EZET10TA21 PO; +NS 1,000 ML IV ONE; +OMEP-218 PO; +TRAZ-257 PO; +allergy shots IM
[2019-06-27] MEDS ORDERED: propofoL 200 MG/20 ML VIAL As Ordered ONE ×2 (08:15→08:16)
[2019-06-27] MEDS ORDERED: LIDOCAINE 2% INJ 100 MG/5 ML SDV (FOR ANES.) As Ordered ONE (08:15)
--- NOTE | 2019-06-27 08:23 | ROOR ---
Patient Name: Saba Lynn Procedure Date: 06/27/2019 8:09 AM Date of : 1960 Age: 58 Room: [facility] Gender: Female Note Status: Finalized Procedure: Upper Endoscopy + Biopsies Indications: Dysphagia, Chronic cough Providers: Gianni Linton MD Referring MD: Rodolfo Sarabia DO Requesting Provider: Medicines: Monitored Anesthesia Care Complications: No immediate complications. Procedure: Pre-Anesthesia Assessment: - The heart rate, respiratory rate, oxygen saturations, blood pressure, adequacy of pulmonary ventilation, and response to care were monitored throughout the procedure. The Endoscope was introduced through the mouth, and advanced to the second part of duodenum. The upper GI endoscopy was accomplished without difficulty. The patient tolerated the procedure well. Findings: The Z-line was regular and was found 38 cm from the incisors. Biopsies were taken with a cold forceps for histology. A medium amount of food (residue) was found on the greater curvature of the stomach. The exam was otherwise without abnormality. Impression: - Z-line regular, 38 cm from the incisors. Biopsied. - A medium amount of food (residue) in the stomach. - The examination was otherwise normal. - The examination was otherwise normal. Recommendation: - Await pathology results. - Discharge patient to home. - Follow an antireflux regimen. - Continue present medications. - Await pathology results. - Telephone GI clinic for pathology results in 1 week. - Return to referring physician. - The findings and recommendations were discussed with the patient's family. Gianni Linton MD Gianni Linton MD 06/27/2019 8:23:04 AM Electronically signed by Gianni Linton MD Number of Addenda: 0 Note Initiated On: 06/27/2019 8:09 AM Estimated Blood Loss: Estimated blood loss: none.
[2019-06-27 08:46] VITALS: BP 108/54
== END 2019-06-27 08:57 | disposition home or self-care (01) ==
LOC: M OPP 07:07
PROVIDERS: ATTEND Internal Medicine Gastroenterology
DX: R13.10 Dysphagia, unspecified (principal); R05 Cough

== ENCOUNTER → 2019-09-06 | Outpatient (REF) | payer OTHER ==
[~2019-09-06] MED LIST changes: -NS 1,000 ML IV ONE; +TRAZ-163 PO; -TRAZ-257 PO
[2019-09-06 16:01] LABS: BASO % 0.3 % (0.0-1.0); EOS # 0.1 10^3/uL (0.0-0.5); EOS % 1.7 % (0.0-3.0); HEMATOCRIT 39.5 % (36.0-47.0); HEMOGLOBIN 12.8 g/dl (12.0-15.5); LYMPH # 0.3 10^3/uL (1.5-5.0); LYMPH % 7.2 % (24.0-44.0); MEAN CORPUSCULAR HEMOGLOBIN 28.1 pg (27.0-33.0); MEAN CORPUSCULAR HGB CONC 32.4 g/dl (32.0-36.5); MEAN CORPUSCULAR VOLUME 86.6 fl (80.0-96.0); MONO # 0.3 10^3/uL (0.0-0.8); MONO % 8.3 % (0.0-5.0); NEUTROPHILS % 82.2 % (36.0-66.0); PLATELET COUNT, AUTOMATED 129 10^3/uL (150-450); RED BLOOD COUNT 4.56 10^6/uL (4.00-5.40); WHITE BLOOD COUNT 3.6 10^3/uL (4.0-10.0)
[2019-09-06 16:05] LABS: BACTERIA, URINE AUTO 1+ (NEGATIVE); MUCUS, URINE SMALL (NEGATIVE); RBC, URINE AUTO 1 /HPF (0-3); SQUAMOUS EPITHELIAL CELL UR AU 1 /HPF (0-6); WBC, URINE AUTO 22 /HPF (0-3)
[2019-09-06 16:07] LABS: ALBUMIN 4.2 GM/DL (3.2-5.2); ALT/SGPT 33 U/L (12-78); BILIRUBIN,TOTAL 0.5 MG/DL (0.2-1.0); BLOOD UREA NITROGEN 11 MG/DL (7-18); CALCIUM LEVEL 8.9 MG/DL (8.5-10.1); CARBON DIOXIDE LEVEL 27 MEQ/L (21-32); CHLORIDE LEVEL 108 MEQ/L (98-107); CREATININE FOR GFR 0.71 MG/DL (0.55-1.30); GLOMERULAR FILTRATION RATE > 60.0 (>51); GLUCOSE, FASTING 110 MG/DL (70-100); POTASSIUM SERUM 3.9 MEQ/L (3.5-5.1); SODIUM LEVEL 142 MEQ/L (136-145); TOTAL PROTEIN 7.2 GM/DL (6.4-8.2)
== END ==
LOC: M LABNEURO 11:36
PROVIDERS: ATTEND Psychiatry & Neurology Neurology
DX: G35 Multiple sclerosis (principal)

== ENCOUNTER → 2020-01-09 | Outpatient (REF) | payer OTHER ==
[~2020-01-09] MED LIST changes: -TRAZ-163 PO; +TRAZ-257 PO
[2020-01-09 15:58] LABS: BASO % 0.2 % (0.0-1.0); EOS # 0.1 10^3/uL (0.0-0.5); EOS % 1.7 % (0.0-3.0); HEMATOCRIT 36.7 % (36.0-47.0); HEMOGLOBIN 12.2 g/dl (12.0-15.5); LYMPH # 0.7 10^3/uL (1.5-5.0); LYMPH % 16.6 % (24.0-44.0); MEAN CORPUSCULAR HEMOGLOBIN 28.2 pg (27.0-33.0); MEAN CORPUSCULAR HGB CONC 33.2 g/dl (32.0-36.5); MEAN CORPUSCULAR VOLUME 84.8 fl (80.0-96.0); MONO # 0.5 10^3/uL (0.0-0.8); MONO % 10.8 % (0.0-5.0); NEUTROPHILS # 2.9 10^3/uL (1.5-8.5); NEUTROPHILS % 70.2 % (36.0-66.0); PLATELET COUNT, AUTOMATED 186 10^3/uL (150-450); RED BLOOD COUNT 4.33 10^6/uL (4.00-5.40); WHITE BLOOD COUNT 4.2 10^3/uL (4.0-10.0)
[2020-01-10 09:12] LABS: FOLATE 6.8 NG/ML; HEPATITIS B SURFACE ANTIBODY NEGATIVE (POSITIVE); VITAMIN B12 LEVEL 971 PG/ML
== END ==
LOC: M LABDRAW1 15:23
PROVIDERS: ATTEND Psychiatry & Neurology Neurology
DX: G35 Multiple sclerosis (principal)